=== PATIENT | female | born 1935 | race Caucasian/White ===

== ENCOUNTER 2017-11-18 07:53 | Outpatient (CLI) | payer MEDICARE, OTHER ==
--- NOTE | 2017-11-18 09:43 | MMO ---
BILATERAL SCREENING MAMMOGRAMS: 11/18/2017 COMPARISON: 10/05/2016, 02/13/2015, 02/11/2014, 04/16/2011 FINDINGS: This study is interpreted with the assistance of computer aided detection. Scattered fibroglandular densities are again seen in each breast. There are stable vascular calcific ations, as well as benign appearing calcifications in each breast. No dominant masses or suspicious grouping of microcalcifications are seen in either breast. IMPRESSION: BI-RADS Category 2-Benign findings. Routine annual mammographic screening is recommended. POS: [facility]
== END 2017-11-18 07:54 | disposition home or self-care (01) ==
LOC: SCSMAMMO 07:53
PROVIDERS: ATTEND Family Medicine
DX: Z12.31 Encounter for screening mammogram for malignant neoplasm of breast (principal)
CPT/HCPCS: 77067

== ENCOUNTER 2019-01-04 01:05 | Observation (INO) | payer MEDICARE, OTHER ==
[2019-01-04] MEDS ORDERED: Aspirin Chewable 81 MG TAB ONE (01:37)
[2019-01-04] MEDS ORDERED: Nitroglycerin 2% Ointment 1 INCH/1 GM Packet ONE ×2 (01:37→01:48)
[2019-01-04 01:38] LABS: Hemoglobin 13.4 g/dL (12.0-16.0); Mean Corpuscular HGB CONC 33.1 g/dL (32.0-36.0); Mean Corpuscular Hemoglobin 31.5 pg (27.0-31.0); Mean Corpuscular Volume 95.1 fL (78.0-98.0); Mean Platelet Volume 8.6 fL (7.4-10.4); Platelet Count 165 thou/uL (130-400); RBC Distribution Width 12.2 % (11.5-14.5); Red Blood Cell (RBC) Count 4.25 mill/uL (4.20-5.40); White Blood Cell (WBC) Count 8.5 thou/uL (4.8-10.8)
[2019-01-04 01:51] LABS: ALT (SGPT) 16 U/L (8-55); AST (SGOT) 23 U/L (5-34); Albumin 4.2 g/dL (3.4-4.8); Alkaline Phosphatase 102 U/L (40-110); Anion Gap 16 mmol/L (10-20); BUN (Urea Nitrogen) 22 mg/dL (9.8-20.1); Bilirubin, Total 0.6 mg/dL (0.2-1.2); CK (CPK) 63 U/L (29-168); Calc. Creatinine Clearance 0 mL/min (70-130); Calcium 9.7 mg/dL (7.8-10.44); Carbon Dioxide 27 mmol/L (23-31); Chloride 102 mmol/L (98-107); Estimated GFR-MDRD 26; Globulin 2.8 g/dL (2.4-3.5); Glucose 113 mg/dL (83-110); Lipase 74 U/L (8-78); Potassium 3.4 mmol/L (3.5-5.1); Sodium 142 mmol/L (136-145)
[2019-01-04 02:00] LABS: Eosinophils 4 % (0-10); Lymphocytes 30 % (21-51); MDiff Complete? YES; Monocytes 7 % (0-10); Neutrophil 59 % (42-75); Platelet Morphology Comment Appears Adequate; RBC Morphology Normal
[2019-01-04 02:14] LABS: CKMB 1.3 ng/mL (0-6.6)
[2019-01-04 04:38] VITALS: BMI 24.8
[2019-01-04] MEDS ORDERED: Guaifenesin DM 100-10/5 ML UDCUP PO PRN (05:27)
[2019-01-04] MEDS ORDERED: Acetaminophen 325 MG TAB PO PRN (05:27)
[2019-01-04] MEDS ORDERED: Bisacodyl 10 MG SUPP PR PRN (05:27)
[2019-01-04] MEDS ORDERED: Senokot S 8.6-50 MG TAB PO PRN (05:27)
--- NOTE | 2019-01-04 05:58 | HP ---
REASON FOR ADMISSION: Dizziness, hypertensive urgency. HISTORY OF PRESENTING ILLNESS: The patient gives history of feeling queasy in her stomach and dizzy from yesterday. She had a headache as well. She also mentions that 3 weeks back, she had a spell. From then on, her head is a bit cloudy and everyday, she has been having different symptoms. She also mentions that she had gone to see her primary care physician 3 days back and was given sleeping pills. Although, she slept well, she was fuzzy the whole day day-before. She did not take her sleeping pill after that. The patient ambulates by herself. PAST MEDICAL AND SURGICAL HISTORY: Hypertension, chronic kidney disease stage 3 , history of parathyroidectomy, microscopic colitis, has had complete cardiac workup [address] Britton's office per patient. CURRENT MEDICATIONS: 1. Terazosin 1 mg p.o. daily. 2. Aspirin 81 mg p.o. daily. 3. Losartan 100 mg p.o. daily. 4. Atenolol 100 mg p.o. daily. 5. Lasix p.r.n. 6. Lipitor daily. 7. Norvasc 2.5 mg daily. ALLERGIES: NO KNOWN DRUG ALLERGIES. PERSONAL HISTORY: Does not abuse alcohol or drugs. No history of smoking. She lives alone. Her son lives close by and checks on her. FAMILY HISTORY: Mother committed suicide at the age of 65. She has had history of TB/lung disease. Father was killed at the age of 27 years. CODE STATUS: Full. Power of attraction attendant is her son. REVIEW OF SYSTEMS: CONSTITUTIONAL: Negative for weight loss or gain, ability to conduct usual activities. SKIN: Negative for rash, itching. EYES: Negative for double vision, pain. ENT/MOUTH: Negative for nose bleeding, neck stiffness, pain, tenderness. CARDIOVASCULAR: Negative for palpitations, dyspnea on exertion, orthopnea. RESPIRATORY: Negative for shortness of breath, wheezing, cough, hemoptysis, fever or night sweats. GASTROINTESTINAL: Negative for poor appetite, abdominal pain, heartburn, nausea , vomiting, constipation, or diarrhea. GENITOURINARY: Negative for urgency, frequency, dysuria, nocturia. MUSCULOSKELETAL: Negative for pain, swelling. NEUROLOGIC/PSYCHIATRIC: Negative for anxiety, depression. ALLERGY/IMMUNOLOGIC: Negative for skin rash, bleeding tendency. . PHYSICAL EXAMINATION: GENERAL: The patient is an 83-year-old female, who is currently not in any acute distress. VITAL SIGNS: Blood pressure 180/104, pulse 80 per minute, respiratory rate 20 per minute, temperature 97.8 degrees Fahrenheit, saturating 97% on room air. NECK: Supple. No elevated JVD. HEENT: Eyes; extraocular muscles intact. Pupils reacting to light. Oral cavity, mucous membranes are moist. No exudates or congestion. CARDIOVASCULAR: S1 and S2 heard. Regular rhythm. Loud S2. RESPIRATORY: Air entry 2+ bilateral. No rales or rhonchi. ABDOMEN: Soft. Bowel sounds heard. No tenderness, rigidity, or guarding. EXTREMITIES: No peripheral edema or calf tenderness. VASCULAR SYSTEM: Peripheral pulses 1+ bilateral. No ischemic ulcerations or gangrene. CENTRAL NERVOUS SYSTEM: No gross focal deficits noted. The patient is alert, awake, and oriented well. PSYCHIATRIC SYSTEM: The patient's mood is euthymic. No hallucinations or delusions. LABORATORY DATA: Chest x-ray by my review shows no acute cardiopulmonary abnormalities. EKG shows sinus rhythm at 65 beats per minute. White count of 8 , H and H 13 and 40, platelet count is 165, MCV is 95 with 59% neutrophils. BUN 22, creatinine 1.8, serum glucose 113. Troponin I 0.04. BNP 149. Liver enzymes within normal limits. Albumin is 4.2. Lipase is 74. CLINICAL IMPRESSION AND PLAN: The patient will be under observation on telemetry for hypertensive urgency and dizziness. The patient states she has had a complete cardiac workup in Dr. Britton's office 2 years back. She also has chronic kidney disease, likely stage IV and follows up with Dr. Guillermo Nolasco. The plan is to get the patient's blood pressure under control. We will obtain PT evaluation. We will also check orthostatic blood pressures. We will continue her atenolol, Cozaar, terazosin, atorvastatin, and mirtazepine as before. Serial troponins will be obtained. Echo with 2D Doppler for LV function will be obtained. We will continue to closely monitor her on telemetry. We will also obtain a 12-lead EKG. The patient's paperwork did not accompany her EKG from [facility]. The telemetry shows sinus rhythm with no gross ST-T wave changes. Job ID: [id number] [facility]
[2019-01-04] MEDS ORDERED: Nitroglycerin 2% Ointment 1 INCH/1 GM Packet TOP SCH (06:00)
[2019-01-04 06:18] LABS: Troponin I Less than 0.010 ng/mL (< 0.028)
[2019-01-04 06:24] LABS: #Basophils 0.1 thou/uL (0.0-0.2); #Eosinphils 0.3 thou/uL (0.0-0.7); #Lymphocytes 1.6 thou/uL (1.20-3.40); #Monocytes 0.5 thou/uL (0.11-0.59); %Basophils 1.2 % (0.0-1.0); %Eosinophils 3.8 % (0.0-10.0); %Lymphocytes 21.3 % (21.0-51.0); %Monocytes 6.9 % (0.0-10.0); %Neutrophils 66.7 % (42.0-75.0); Hemoglobin 12.7 g/dL (12.0-16.0); Mean Corpuscular Hemoglobin 32.5 pg (27.0-31.0); Mean Corpuscular Volume 95.4 fL (78.0-98.0); Mean Platelet Volume 7.8 fL (7.4-10.4); Platelet Count 167 thou/uL (130-400); RBC Distribution Width 11.9 % (11.5-14.5); Red Blood Cell (RBC) Count 3.92 mill/uL (4.20-5.40); White Blood Cell (WBC) Count 7.5 thou/uL (4.8-10.8)
[2019-01-04 06:47] LABS: Albumin 3.9 g/dL (3.4-4.8); Anion Gap 14 mmol/L (10-20); BUN (Urea Nitrogen) 23 mg/dL (9.8-20.1); BUN/Creatinine Ratio 12.71; Calc. Creatinine Clearance 25 mL/min (70-130); Calcium 9.5 mg/dL (7.8-10.44); Carbon Dioxide 29 mmol/L (23-31); Cardiac Risk 2.8 (Less than 4.5); Chloride 104 mmol/L (98-107); Cholesterol 179 mg/dl (< 200 Desired); Estimated GFR-MDRD 27; Glucose 113 mg/dL (83-110); HDL Cholesterol 63 mg/dL (>60 Neg Risk); LDL Cholesterol, Calculated 95 mg/dL; Phosphorus 2.9 mg/dL (2.3-4.7); Potassium 4.6 mmol/L (3.5-5.1); Sodium 142 mmol/L (136-145); Triglycerides 105 mg/dL (Less than 150)
--- NOTE | 2019-01-04 08:09 | RAD ---
PA AND LATERAL VIEWS CHEST: HISTORY: Dyspnea. FINDINGS/IMPRESSION: The heart is borderline. The aorta is tortuous. The lungs are expanded without lobar consolidation, pneumothorax, marisol pulmonary edema, or pleural effusions. There are degenerative changes in the sp ine. Prominent interstitial markings are likely chronic. POS: [facility]
[2019-01-04] MEDS ORDERED: Enoxaparin Sodium 30 MG/0.3 ML SYRINGE SC SCH (09:00)
[2019-01-04] MEDS ORDERED: Atorvastatin Calcium 40 MG TAB PO SCH (09:00)
[2019-01-04] MEDS ORDERED: Losartan 25 MG TAB PO SCH (09:00)
[2019-01-04] MEDS ORDERED: Mirtazapine 15 MG TAB PO SCH (09:00)
[2019-01-04] MEDS ORDERED: Aspirin Chewable 81 MG TAB PO SCH (09:00)
[2019-01-04] MEDS ORDERED: Amlodipine 5 MG TAB PO SCH (09:00)
[2019-01-04] MEDS ORDERED: Atenolol 50 MG TAB PO SCH (09:00)
[2019-01-04 15:29] VITALS: BP 135/65; TEMP 98.2
--- NOTE | 2019-01-04 16:44 | EKG ---
Test Reason : Blood Pressure : / mmHG Vent. Rate : 063 BPM Atrial Rate : 063 BPM P-R Int : 178 ms QRS Dur : 082 ms QT Int : 454 ms P-R-T Axes : 058 -01 047 degrees QTc Int : 464 ms Normal sinus rhythm Minimal voltage criteria for LVH, may be normal variant Cannot rule out Anterior infarct , age undetermined Abnormal ECG Confirmed by DANYELL CASTILLO ([id number]) on 01/04/2019 4:43:55 PM Referred By: Confirmed By:DANYELL CASTILLO
[2019-01-04] MEDS ORDERED: Terazosin HCl 1 MG CAP PO SCH (21:00)
[2019-01-04] MEDS ORDERED: Prevnar 13-Val Conj/PF 0.5 ML SYRINGE IM ONE (21:00)
--- NOTE | 2019-01-05 13:12 | DIS ---
DATE OF ADMISSION: 01/04/2019 DATE OF DISCHARGE: 01/04/2019 DISCHARGE DIAGNOSES: 1. Dizziness. 2. Hypertensive urgency. 3. Chronic kidney disease, stage 4. 4. Hyperlipidemia. HISTORY OF PRESENT ILLNESS: The patient is an 83-year-old female, who presented to the emergency department, reporting feeling queasy, dizzy, and some mild headache symptoms. She reported that 3 days prior, she had seen her primary care provider who had been given some sleeping pills, so she has slept well. Subsequently, she has discontinued those. She has otherwise been able to get up and ambulate. She was noted initially to have a BP of 180/104. Chest x-ray was unremarkable. EKG was unremarkable. Troponin was 0.04. BNP was normal. Creatinine was 1.8. HOSPITAL COURSE: The patient was placed in observation on telemetry. She had received Nitro-Bid and aspirin in the emergency department. Subsequently, her blood pressures were better, although, they remained a bit high. She had orthostatics that were negative. She generally felt better throughout the day and I discussed the case with Dr. Nolasco, who was comfortable following the patient up with her blood pressures as they were and it was also noted that the patient had a complete workup with Dr. Britton within the past 2 years, which was unremarkable as an outpatient with that and then negative troponins. Subsequently, the patient was felt to be stable for discharge. PHYSICAL EXAMINATION: At the time of discharge, VITAL SIGNS: Temperature is 98.2, pulse 70, respirations 18, O2 saturations 98 % on room air, BP is 135/65. GENERAL: She was awake and alert. HEART: Regular rate and rhythm. LUNGS: Clear bilaterally with no wheezes or rales. ABDOMEN: Soft, nontender, and nondistended. Positive bowel sounds. EXTREMITIES: No edema. DISPOSITION: The patient is discharged home. She is to have a heart healthy, renal diet. ACTIVITY: As tolerated. DISCHARGE MEDICATIONS: She will continue with her usual home medications with no changes. FOLLOWUP: She is to follow up with Dr. Maurice in 7 days. She should follow up with Dr. Nolasco and Dr. Britton. She can return to the hospital should she have any problems prior to that time. Job ID: [id number] [facility]
== END 2019-01-04 18:00 | disposition home or self-care (01) ==
LOC: SCSER 01:05 → 2SW 02:34
PROVIDERS: ADMIT Internal Medicine; ATTEND Internal Medicine
DX: I16.0 Hypertensive urgency (principal); R42 Dizziness and giddiness; I12.9 Hypertensive chronic kidney disease with stage 1 through stage 4 chronic kidney disease, or unspecified chronic kidney disease; N18.4 Chronic kidney disease, stage 4 (severe); E78.5 Hyperlipidemia, unspecified; Z79.82 Long term (current) use of aspirin; Z79.899 Other long term (current) drug therapy; Z91.013 Allergy to seafood
CPT/HCPCS: 71046; 80053; 80061; 80069; 82550; 82553; 83690; 83880; 84484 ×2; 85025 ×2; 93005; 93306; 96372; 97139 ×2; 99285; G0378; 36415; 93010; J1650

== ENCOUNTER 2020-07-25 09:13 | Outpatient (CLI) | payer MEDICARE, OTHER | END 2020-07-25 09:14 | disposition home or self-care (01) | LOC: SCSRAD 09:13 | PROVIDERS: ATTEND Family Medicine | DX: Z11.1 Encounter for screening for respiratory tuberculosis (principal) | CPT/HCPCS: 71046 ==

== ENCOUNTER 2022-03-16 08:46 | Outpatient (CLI) | payer MEDICARE, OTHER | END 2022-03-16 08:47 | disposition home or self-care (01) | LOC: SCSRAD 08:46 | PROVIDERS: ATTEND Family Medicine | DX: J90 Pleural effusion, not elsewhere classified (principal); S22.42XD Multiple fractures of ribs, left side, subsequent encounter for fracture with routine healing | CPT/HCPCS: 71046 ==

== ENCOUNTER 2022-03-22 11:21 | Outpatient (CLI) | payer MEDICARE, OTHER | END 2022-03-22 11:22 | disposition home or self-care (01) | LOC: SCSRAD 11:21 | PROVIDERS: ATTEND Family Medicine | DX: J90 Pleural effusion, not elsewhere classified (principal); J98.19 Other pulmonary collapse | CPT/HCPCS: 71046 ==

== ENCOUNTER 2022-05-24 14:35 | Inpatient (IN) | payer OTHER, MEDICARE ==
[2022-05-24] MEDS ORDERED: Lidocaine 1% PF 5 ML VIAL ONE (14:57)
[2022-05-24] MEDS ORDERED: niCARdipine 25 MG/10 ML SDV ONE ×2 (15:23→18:18)
[2022-05-24] MEDS ORDERED: CEFAZOLIN 1 GM VIAL ONE (15:39)
[2022-05-24] MEDS ORDERED: QUEtiapine 25 MG TAB PO SCH ×2 (16:45→21:00)
[2022-05-24] MEDS ORDERED: Ipratropium/Albuterol 3 ML NEB NEB PRN (17:28)
[2022-05-24] MEDS ORDERED: Ondansetron PF 4 MG/2 ML Vial IVP PRN (17:28)
[2022-05-24] MEDS ORDERED: Proparacaine 0.5% Opth 15 ML BOT ONE (18:03)
[2022-05-24] MEDS ORDERED: Fluorescein Opthalmic Strip ONE (18:03)
[2022-05-24] MEDS ORDERED: Losartan 25 MG TAB PO SCH (19:04)
[2022-05-24] MEDS ORDERED: Atenolol 50 MG TAB PO SCH (19:04)
[2022-05-24] MEDS: Acetaminophen 325 MG TAB PO SCH ×2 (20:29→23:49)
[2022-05-24] MEDS ORDERED: niCARdipine 25 MG in Sodium Chloride 0.9% 250 ML 250 ML IVPB SCH (21:00)
[2022-05-24] MEDS ORDERED: Famotidine/PF 20 mg/2ml Vial SLOW IVP SCH (21:00)
[2022-05-24] MEDS: levETIRAcetam 500 MG TAB PO SCH (21:03)
[2022-05-24] MEDS: Sodium Chloride 0.9% 1,000 ML IV SCH (21:11)
[2022-05-25] MEDS ORDERED: Haloperidol Lactate 5 MG/ML VIAL ONE (02:53)
[2022-05-25] MEDS ORDERED: Haloperidol Lactate 5 MG/ML VIAL IM SCH (03:00)
[2022-05-25 04:31] LABS: #Eosinphils 0.3 thou/uL (0.0-0.7); #Lymphocytes 1.1 thou/uL (1.20-3.40); #Monocytes 0.9 thou/uL (0.11-0.59); #Neutrophils 9.6 thou/uL (1.40-6.50); %Basophils 0.3 % (0.0-1.0); %Eosinophils 2.2 % (0.0-10.0); %Lymphocytes 9.6 % (21.0-51.0); %Monocytes 7.2 % (0.0-10.0); %Neutrophils 80.7 % (42.0-75.0); Hemoglobin 10.9 g/dL (12.0-16.0); Mean Corpuscular HGB CONC 33.5 g/dL (32.0-36.0); Mean Corpuscular Hemoglobin 33.1 pg (27.0-31.0); Mean Corpuscular Volume 98.8 fl (78.0-98.0); Mean Platelet Volume 8.5 fL (7.4-10.4); Platelet Count 218 10x3/uL (130-400); RBC Distribution Width 14.2 % (11.5-14.5); Red Blood Cell (RBC) Count 3.29 mill/uL (4.20-5.40); White Blood Cell (WBC) Count 11.9 10x3/uL (4.8-10.8)
[2022-05-25 04:54] LABS: Phosphorus 3.8 mg/dL (2.3-4.7)
[2022-05-25 04:56] LABS: Anion Gap 15 mmol/L (10-20); BUN (Urea Nitrogen) 30 mg/dL (9.8-20.1); Calc. Creatinine Clearance 26 mL/min (70-130); Calcium 8.7 mg/dL (7.8-10.44); Carbon Dioxide 22 mmol/L (23-31); Chloride 104 mmol/L (98-107); Estimated GFR 43; Glucose 88 mg/dL (83-110); Magnesium 1.7 mg/dL (1.6-2.6); Potassium 3.6 mmol/L (3.5-5.1); Sodium 137 mmol/L (136-145)
[2022-05-25] MEDS: hydrALAZINE 20 MG/ML VIAL SLOW IVP PRN ×2 (05:44→17:10)
[2022-05-25] MEDS: Sodium Chloride 0.9% 1,000 ML IV SCH (05:45)
[2022-05-25] MEDS: Acetaminophen 325 MG TAB PO SCH ×4 (06:36→23:50)
[2022-05-25] MEDS ORDERED: Magnesium 2 GM/50 ML(in water) 2 GM in Premix Bag 1 BAG IVPB SCH (08:00)
[2022-05-25] MEDS ORDERED: Potassium Chloride 20 MEQ TAB PO SCH (08:00)
[2022-05-25] MEDS ORDERED: Acetaminophen/Codeine 30-300mg Tablet PO PRN (08:13)
[2022-05-25] MEDS ORDERED: Morphine 2 MG/ML VIAL SLOW IVP PRN (08:14)
[2022-05-25 08:29] LABS: SARS-CoV-2 NAA Rapid Test Not Detected (NotDetected)
[2022-05-25] MEDS: Atorvastatin Calcium 40 MG TAB PO SCH (08:35)
[2022-05-25] MEDS: Amlodipine 5 MG TAB PO SCH (08:35)
[2022-05-25] MEDS: Atenolol 50 MG TAB PO SCH (08:36)
[2022-05-25] MEDS: Gabapentin 100 MG CAP PO SCH ×3 (08:36→20:09)
[2022-05-25] MEDS: Losartan 25 MG TAB PO SCH (08:37)
[2022-05-25] MEDS: Citalopram 20 MG TAB PO SCH (08:37)
[2022-05-25] MEDS: levETIRAcetam 500 MG TAB PO SCH ×2 (08:37→20:09)
[2022-05-25] MEDS: Chlorhexidine Gluconate 15 ML UDCUP SSP SCH ×2 (08:37→20:09)
[2022-05-25] MEDS: Famotidine/PF 20 mg/2ml Vial SLOW IVP SCH (08:38)
[2022-05-25] MEDS ORDERED: Atenolol 50 MG TAB PO SCH (09:00)
[2022-05-25] MEDS: Acetaminophen/Codeine 30-300mg Tablet PO SCH ×3 (12:50→23:50)
[2022-05-25] MEDS: QUEtiapine 25 MG TAB PO SCH (20:10)
[2022-05-26 03:50] VITALS: BMI 23.3
[2022-05-26] MEDS: Acetaminophen 325 MG TAB PO SCH ×4 (05:02→23:19)
[2022-05-26] MEDS: Acetaminophen/Codeine 30-300mg Tablet PO SCH ×4 (05:02→23:19)
[2022-05-26] MEDS: Chlorhexidine Gluconate 15 ML UDCUP SSP SCH ×2 (09:25→19:31)
[2022-05-26] MEDS: Losartan 25 MG TAB PO SCH (09:26)
[2022-05-26] MEDS: Citalopram 20 MG TAB PO SCH (09:26)
[2022-05-26] MEDS: Famotidine/PF 20 mg/2ml Vial SLOW IVP SCH (09:26)
[2022-05-26] MEDS: Atorvastatin Calcium 40 MG TAB PO SCH ×2 (09:27→09:35)
[2022-05-26] MEDS: Atenolol 50 MG TAB PO SCH (09:27)
[2022-05-26] MEDS: Amlodipine 5 MG TAB PO SCH (09:27)
[2022-05-26] MEDS: levETIRAcetam 500 MG TAB PO SCH ×2 (09:27→19:31)
[2022-05-26] MEDS: Gabapentin 100 MG CAP PO SCH ×3 (09:27→19:31)
[2022-05-26] MEDS: Furosemide 20 MG TAB PO SCH (09:35)
[2022-05-26] MEDS: QUEtiapine 25 MG TAB PO SCH (19:31)
[2022-05-27] MEDS: Acetaminophen/Codeine 30-300mg Tablet PO SCH ×3 (05:27→17:15)
[2022-05-27] MEDS: Acetaminophen 325 MG TAB PO SCH ×3 (05:27→17:15)
[2022-05-27] MEDS: Famotidine 20 MG TAB PO SCH (09:34)
[2022-05-27] MEDS: Atenolol 50 MG TAB PO SCH (09:35)
[2022-05-27] MEDS: Amlodipine 5 MG TAB PO SCH (09:35)
[2022-05-27] MEDS: Furosemide 20 MG TAB PO SCH (09:35)
[2022-05-27] MEDS: Citalopram 20 MG TAB PO SCH (09:35)
[2022-05-27] MEDS: Losartan 25 MG TAB PO SCH (09:37)
[2022-05-27] MEDS: Gabapentin 100 MG CAP PO SCH ×3 (09:38→22:34)
[2022-05-27] MEDS: levETIRAcetam 500 MG TAB PO SCH ×2 (09:39→22:34)
[2022-05-27] MEDS: Baclofen 10 MG TAB PO SCH ×3 (09:40→22:34)
[2022-05-27] MEDS: Chlorhexidine Gluconate 15 ML UDCUP SSP SCH ×2 (12:29→21:00)
[2022-05-27] MEDS ORDERED: FLU VACC QS2022-23(65YR UP)/PF 240 MCG/0.7 ML SYRINGE IM ONE (22:15)
[2022-05-27] MEDS: QUEtiapine 25 MG TAB PO SCH (22:34)
[2022-05-28] MEDS: Acetaminophen 325 MG TAB PO SCH ×3 (04:34→12:28)
[2022-05-28] MEDS: Acetaminophen/Codeine 30-300mg Tablet PO SCH ×3 (04:35→12:29)
[2022-05-28] MEDS: hydrALAZINE 20 MG/ML VIAL SLOW IVP PRN (04:35)
[2022-05-28 07:19] LABS: #Eosinphils 0.6 thou/uL (0.0-0.7); #Lymphocytes 1.2 thou/uL (1.20-3.40); #Monocytes 0.8 thou/uL (0.11-0.59); #Neutrophils 8.6 thou/uL (1.40-6.50); %Basophils 0.2 % (0.0-1.0); %Lymphocytes 10.3 % (21.0-51.0); %Monocytes 7.1 % (0.0-10.0); %Neutrophils 77.4 % (42.0-75.0); Hemoglobin 10.4 g/dL (12.0-16.0); Mean Corpuscular HGB CONC 32.9 g/dL (32.0-36.0); Mean Corpuscular Hemoglobin 32.9 pg (27.0-31.0); Mean Corpuscular Volume 99.9 fl (78.0-98.0); Mean Platelet Volume 8.3 fL (7.4-10.4); Platelet Count 259 10x3/uL (130-400); RBC Distribution Width 14.5 % (11.5-14.5); Red Blood Cell (RBC) Count 3.15 mill/uL (4.20-5.40); White Blood Cell (WBC) Count 11.2 10x3/uL (4.8-10.8)
[2022-05-28 07:39] LABS: Anion Gap 12 mmol/L (10-20); BUN (Urea Nitrogen) 45 mg/dL (9.8-20.1); Calc. Creatinine Clearance 20 mL/min (70-130); Calcium 8.8 mg/dL (7.8-10.44); Carbon Dioxide 20 mmol/L (23-31); Chloride 110 mmol/L (98-107); Estimated GFR 32; Glucose 95 mg/dL (83-110); Magnesium 2.2 mg/dL (1.6-2.6); Potassium 4.5 mmol/L (3.5-5.1); Sodium 137 mmol/L (136-145)
[2022-05-28] MEDS: Atenolol 50 MG TAB PO SCH (09:36)
[2022-05-28] MEDS: Chlorhexidine Gluconate 15 ML UDCUP SSP SCH (09:36)
[2022-05-28] MEDS: Amlodipine 5 MG TAB PO SCH (09:36)
[2022-05-28] MEDS: Famotidine 20 MG TAB PO SCH (09:36)
[2022-05-28] MEDS: levETIRAcetam 500 MG TAB PO SCH (09:36)
[2022-05-28] MEDS: Baclofen 10 MG TAB PO SCH ×2 (09:37→14:58)
[2022-05-28] MEDS: Atorvastatin Calcium 40 MG TAB PO SCH (09:37)
[2022-05-28] MEDS: Furosemide 20 MG TAB PO SCH (09:37)
[2022-05-28] MEDS: Gabapentin 100 MG CAP PO SCH ×2 (09:37→14:58)
[2022-05-28] MEDS: Citalopram 20 MG TAB PO SCH (09:37)
[2022-05-28] MEDS: Losartan 25 MG TAB PO SCH (09:37)
[2022-05-28 15:59] VITALS: BP 146/69; TEMP 97.8
== END 2022-05-28 16:30 | DRG 83 ==
LOC: ERS 14:35 → CCU 18:26 → SURG B 05-25 18:27
PROVIDERS: ADMIT Surgery; ATTEND Surgery
PROC: 08QRXZZ Repair Left Lower Eyelid, External Approach (ICD-10-PCS; principal; 2022-05-24)
PROC: 0CQ0XZZ Repair Upper Lip, External Approach (ICD-10-PCS; 2022-05-24)
DX: S06.5XAA Traumatic subdural hemorrhage with loss of consciousness status unknown, initial encounter (principal); K86.2 Cyst of pancreas; S22.32XA Fracture of one rib, left side, initial encounter for closed fracture; Z20.822 Contact with and (suspected) exposure to COVID-19; R91.8 Other nonspecific abnormal finding of lung field; W01.0XXA Fall on same level from slipping, tripping and stumbling without subsequent striking against object, initial encounter; S02.611A Fracture of condylar process of right mandible, initial encounter for closed fracture; S01.112A Laceration without foreign body of left eyelid and periocular area, initial encounter; S01.511A Laceration without foreign body of lip, initial encounter; F03.90 Unspecified dementia, unspecified severity, without behavioral disturbance, psychotic disturbance, mood disturbance, and anxiety; I12.9 Hypertensive chronic kidney disease with stage 1 through stage 4 chronic kidney disease, or unspecified chronic kidney disease; E78.5 Hyperlipidemia, unspecified; M81.0 Age-related osteoporosis without current pathological fracture; I16.0 Hypertensive urgency; K80.20 Calculus of gallbladder without cholecystitis without obstruction; R40.2362 Coma scale, best motor response, obeys commands, at arrival to emergency department; R40.2142 Coma scale, eyes open, spontaneous, at arrival to emergency department; R40.2242 Coma scale, best verbal response, confused conversation, at arrival to emergency department; Z28.21 Immunization not carried out because of patient refusal; Z91.013 Allergy to seafood; Z79.899 Other long term (current) drug therapy; Z79.02 Long term (current) use of antithrombotics/antiplatelets; S01.81XA Laceration without foreign body of other part of head, initial encounter; D72.829 Elevated white blood cell count, unspecified; N18.30 Chronic kidney disease, stage 3 unspecified; Z79.82 Long term (current) use of aspirin
CPT/HCPCS: 12011; 36415; 40650; 51701; 70450; 70486; 71045; 71260; 72125; 74177; 80048; 80053; 81003; 81015; 83735; 84100; 84484; 85025; 85610; 85730; 90715; 93005; 96365; 96366; 96368; G0390; J0360; J0690; J1630; J2001; J3475; J7050; Q9967; S0028; U0002

== ENCOUNTER 2022-06-14 09:39 | Outpatient (CLI) | payer MEDICARE, OTHER | END 2022-06-14 09:40 | disposition home or self-care (01) | LOC: BICRAD 09:39 | PROVIDERS: ATTEND Surgery | DX: S22.49XA Multiple fractures of ribs, unspecified side, initial encounter for closed fracture (principal) | CPT/HCPCS: 71046 ==

== ENCOUNTER 2022-06-22 10:47 | Outpatient (CLI) | payer MEDICARE, OTHER | END 2022-06-22 10:48 | disposition home or self-care (01) | LOC: SCSCT 10:47 | PROVIDERS: ATTEND Surgery | DX: S06.5X0D Traumatic subdural hemorrhage without loss of consciousness, subsequent encounter (principal) | CPT/HCPCS: 70450 ==

== ENCOUNTER 2022-07-15 17:12 | Emergency (ER) | payer MEDICARE, OTHER ==
[2022-07-15] MEDS ORDERED: Bacitracin 1 PK ONE (17:44)
== END 2022-07-15 19:38 | disposition home or self-care (01) ==
LOC: ERS 17:12
DX: S62.92XA Unspecified fracture of left hand, initial encounter for closed fracture (principal); S80.212A Abrasion, left knee, initial encounter; S51.012A Laceration without foreign body of left elbow, initial encounter; S61.412A Laceration without foreign body of left hand, initial encounter; I12.9 Hypertensive chronic kidney disease with stage 1 through stage 4 chronic kidney disease, or unspecified chronic kidney disease; N18.30 Chronic kidney disease, stage 3 unspecified; W18.30XA Fall on same level, unspecified, initial encounter; Z79.82 Long term (current) use of aspirin; Z79.899 Other long term (current) drug therapy
CPT/HCPCS: 29125

== ENCOUNTER 2022-07-19 09:43 | Outpatient (CLI) | payer MEDICARE, OTHER | END 2022-07-19 09:44 | disposition home or self-care (01) | LOC: SCSRAD 09:43 | PROVIDERS: ATTEND Family Medicine | DX: R26.89 Other abnormalities of gait and mobility (principal); S32.592A Other specified fracture of left pubis, initial encounter for closed fracture; S32.89XA Fracture of other parts of pelvis, initial encounter for closed fracture | CPT/HCPCS: 72170 ==